=== PATIENT | female | born 1990 | race Caucasian/White ===

== ENCOUNTER 2016-10-17 18:50 | Emergency (ER) | payer BC ==
[2016-10-17 18:50] VITALS: BMI 33.9
[2016-10-17 19:15] VITALS: O2SAT 100
--- NOTE | 2016-10-17 19:53 | C.PDOC ---
History Of Present Illness Patient presents to the ER with a complaint of dizziness and nausea for the past 2 weeks. Patient states she feels nauseous after she eats and notes she is currently not dizzy. LMP was on 09/27. Denies fever, chills or vomiting. Time Seen by Provider: 10/17/16 19:53 Chief Complaint (Nursing): Dizziness/Lightheaded History Per: Patient History/Exam Limitations: no limitations Onset/Duration Of Symptoms: Days (14) Current Symptoms Are (Timing): Still Present Activity At Onset Of Symptoms: Other (Not known) Possible Causative Factor(s): Other (Eating) Fall Associated With With Symptoms: No Severity: None Pain Scale Rating Of: 0 Recent travel outside of the [place]: No Past Medical History Reviewed: Historical Data, Nursing Documentation, Vital Signs Vital Signs: Last Vital Signs Temp 98.8 F 10/17/16 19:11 Pulse 98 H 10/17/16 19:11 Resp 16 10/17/16 19:11 BP 127/89 10/17/16 19:11 Pulse Ox 100 10/17/16 20:25 - Medical History PMH: Anxiety Surgical History: No Surg Hx - [facility] Procedures REMOVAL FB FROM HAND (04/22/13) Family History: States: No Known Family Hx - Social History Hx Tobacco Use: Yes (light smoker) Hx Alcohol Use: Yes Hx Substance Use: No - Immunization History Hx Tetanus Toxoid Vaccination: No Hx Influenza Vaccination: No Hx Pneumococcal Vaccination: No Review Of Systems Constitutional: Negative for: Fever, Chills Gastrointestinal: Positive for: Nausea. Negative for: Vomiting Neurological: Positive for: Dizziness Physical Exam - Physical Exam Appears: Non-toxic, Other (Morbidly obese) Skin: Warm, Dry Oral Mucosa: Moist Chest: Symmetrical, No Tenderness Cardiovascular: Rhythm Regular, No Murmur Respiratory: No Rales, No Rhonchi, No Wheezing Gastrointestinal/Abdominal: Soft, No Tenderness, Other (Obese) Neurological/Psych: Oriented x3 ED Course And Treatment - Laboratory Results Result Diagrams: 10/17/16 21:03 10/17/16 21:03 O2 Sat by Pulse Oximetry: 100 (Room air) Progress Note: Urinalysis ordered. Disposition Counseled Patient/Family Regarding: Studies Performed, Diagnosis, Need For Followup, Rx Given - Disposition Referrals: [facility] [Outside] Disposition: HOME/ ROUTINE Disposition Time: 19:53 Condition: FAIR Prescriptions: Metronidazole [Flagyl] 500 mg PO TID #21 tablet Pantoprazole Sodium [Protonix] 20 mg PO DAILY #15 ect Instructions: Ovarian Cyst (ED), Enteritis (ED) - Clinical Impression Clinical Impression: Enteritis, Ruptured ovarian cyst - Scribe Statement The provider has reviewed the documentation as recorded by the Ninaibdarryl Dang All medical record entries made by the Ninaibdarryl were at my direction and personally dictated by me. I have reviewed the chart and agree that the record accurately reflects my personal performance of the history, physical exam, medical decision making, and the department course for this patient. I have also personally directed, reviewed, and agree with the discharge instructions and disposition.
[2016-10-17 20:35] LABS: URINE BACTERIA RARE (<OCC); URINE BILIRUBIN NEGATIVE (NEGATIVE); URINE BLOOD NEGATIVE (NEGATIVE); URINE COLOR Yellow (YELLOW); URINE GLUCOSE (UA) NORMAL (Normal); URINE KETONE NEGATIVE (NEGATIVE); URINE LEUKOCYTE ESTERASE NEG Leu/uL (Negative); URINE PROTEIN NEGATIVE (NEGATIVE); URINE UROBILINOGEN NORMAL mg/dL (0.2-1.0); WBC URINE < 1 /hpf (0-5)
[2016-10-17] MEDS ORDERED: Sodium Chloride 0.9% 1,000 ML IV ONE (20:42)
[2016-10-17 21:10] LABS: BASO # 0.1 K/uL (0.0-0.2); BASO % 0.3 % (0.0-2.0); EOS # 0.1 K/uL (0.0-0.7); EOS % 0.8 % (0.0-4.0); LYMPH # 3.7 K/uL (1.0-4.3); LYMPH % 23.7 % (20.0-40.0); MEAN CELL VOLUME 82.9 fL (81.0-99.0); MEAN CORPUSCULAR HEMOGLOBIN 26.7 pg (27.0-31.0); MEAN CORPUSCULAR HGB CONC 32.2 g/dL (33.0-37.0); MEAN PLATELET VOLUME 8.6 fL (7.2-11.7); MONO # 0.9 K/uL (0.0-0.8); NRBC % 0.1 % (0.0-2.0); RED CELL DISTRIBUTION WIDTH 14.2 % (11.5-14.5); WHITE BLOOD COUNT 15.8 K/uL (4.8-10.8)
[2016-10-17] MEDS ORDERED: Sodium Chloride 0.9% 1,000 ML ONE (21:11)
[2016-10-17 21:15] LABS: CHLORIDE 98 mmol/L (98-107); SODIUM 135 mmol/L (132-148)
[2016-10-17 21:16] LABS: POTASSIUM 4.3 mmol/L (3.6-5.2)
[2016-10-17 21:18] LABS: ALB/GLOB RATIO 1.1 (1.0-2.1); ALKALINE PHOSPHATASE 101 U/L (38-126); ALT/SGPT 24 U/L (9-52); AST/SGOT 17 U/L (14-36); BILIRUBIN,TOTAL 0.4 mg/dL (0.2-1.3); BLOOD UREA NITROGEN 16 mg/dL (7-17); CARBON DIOXIDE 27 mmol/L (22-30); GFR AFRICAN-AMERICAN > 60; GLUCOSE,RANDOM 89 mg/dL (65-105); TOTAL PROTEIN 7.5 g/dL (6.3-8.3)
[2016-10-17 21:19] LABS: CALCIUM 9.2 mg/dl (8.6-10.4)
[2016-10-17] MEDS ORDERED: Iohexol 350mg/ml 100 ML ONE (22:01)
[2016-10-17 22:54] VITALS: BP 114/73; PULSE 79; RESP 19; TEMP 98.1
--- NOTE | 2016-10-18 09:58 | CT ---
PROCEDURE: CT Abdomen and Pelvis with contrast HISTORY: mid epigastric, ruq pain COMPARISON: None. TECHNIQUE: Contrast dose: 100 mL Omnipaque 350 Radiation dose: Total exam DLP = 1140.55 mGy-cm. This CT exam was performed using one or more of the following dose reduction techniques: Automated exposure control, adjustment of the mA and/or kV according to patient size, and/or use of iterative reconstruction technique. FINDINGS: LOWER THORAX: Unremarkable. LIVER: Unremarkable. No gross lesion or ductal dilatation. GALLBLADDER AND BILE DUCTS: Unremarkable. PANCREAS: Unremarkable. No gross lesion or ductal dilatation. SPLEEN: Unremarkable. ADRENALS: Unremarkable. No mass. KIDNEYS AND URETERS: Unremarkable. No hydronephrosis. No solid mass. VASCULATURE: Unremarkable. No aortic aneurysm. BOWEL: No bowel obstruction. Circumferential mural thickening of several loops of proximal jejunum consistent with nonspecific enteritis. The stomach is underdistended. There are no other abnormal bowel loops identified. . APPENDIX: Normal appendix. PERITONEUM: Unremarkable. No free fluid. No free air. LYMPH NODES: No retroperitoneal or pelvic lymphadenopathy. Shotty subcentimeter mesenteric lymph nodes are noted, nonspecific. BLADDER: Unremarkable. REPRODUCTIVE: Normal uterus BONES: No acute fracture. OTHER FINDINGS: None. IMPRESSION: Nonspecific enteritis with mural thickening of loops of proximal jejunum. No bowel obstruction. Shotty subcentimeter mesenteric lymph nodes, nonspecific. No other significant abnormality. Preliminary interpretation of this examination was reported by [facility] at 10:45 p.m. on 10/17/2016. There is concurrence of this report with the preliminary interpretation.
== END 2016-10-17 23:03 | disposition home or self-care (01) ==
LOC: C.ER 18:50
DX: K52.9 Noninfective gastroenteritis and colitis, unspecified (principal); N83.209 Unspecified ovarian cyst, unspecified side
CPT/HCPCS: 74177; 80053; 81001; 83690; 84703; 85025; 96361; 96374; 99285; C9113; J7040; Q9967

== ENCOUNTER 2017-09-29 19:17 | Emergency (ER) | payer BC ==
[2017-09-29 19:18] VITALS: BMI 33.9
[2017-09-29 20:07] LABS: HCG,QUALITATIVE URINE NEGATIVE (NEGATIVE)
[2017-09-29 20:09] LABS: SQUAMOUS EPITHIAL 20 /hpf (0-5); URINE AMORPHOUS SEDIMENT RARE /ul (<OCC); URINE BACTERIA RARE (<OCC); URINE BILIRUBIN NEGATIVE (NEGATIVE); URINE BLOOD NEGATIVE (NEGATIVE); URINE CLARITY Hazy (Clear); URINE COLOR Yellow (YELLOW); URINE GLUCOSE (UA) NORMAL (Normal); URINE LEUKOCYTE ESTERASE NEG Leu/uL (Negative); URINE PROTEIN NEGATIVE (NEGATIVE); URINE UROBILINOGEN NORMAL mg/dL (0.2-1.0)
--- NOTE | 2017-09-29 21:35 | C.PDOC ---
History Of Present Illness 26 year old female with a past medical history of anxiety presents to the emergency department with complaints of intermittent vertigo associated with a pounding headache. Patient reports no past surgical history, no allergies, no current medication, occasional tobacco and alcohol use. Time Seen by Provider: 09/29/17 19:55 Chief Complaint (Nursing): Dizziness/Lightheaded History Per: Patient History/Exam Limitations: no limitations Onset/Duration Of Symptoms: Hrs Activity At Onset Of Symptoms: Standing Possible Causative Factor(s): Vertigo Past Medical History Reviewed: Historical Data, Nursing Documentation, Vital Signs Vital Signs: Last Vital Signs Temp 98.7 F 09/29/17 21:46 Pulse 71 09/29/17 21:46 Resp 16 09/29/17 21:46 BP 115/77 09/29/17 21:46 Pulse Ox 97 09/30/17 18:54 - Medical History PMH: Anxiety Denies: Alzheimer's Disease, Dementia, Migraine, Multiple Sclerosis, Parkinson's Disease, Seizures, TIA Surgical History: No Surg Hx - [facility] Procedures REMOVAL FB FROM HAND (04/22/13) Family History: States: No Known Family Hx - Social History Hx Tobacco Use: Yes (light smoker) Hx Alcohol Use: Yes Hx Substance Use: No - Immunization History Hx Tetanus Toxoid Vaccination: No Hx Influenza Vaccination: No Hx Pneumococcal Vaccination: No Review Of Systems Except As Marked, All Systems Reviewed And Found Negative. Constitutional: Negative for: Fever, Chills, Sweats Eyes: Negative for: Pain, Vision Change ENT: Negative for: Ear Pain, Ear Discharge, Nose Pain Cardiovascular: Positive for: Other (vertigo). Negative for: Chest Pain, Palpitations, Orthopnea, Paroxysmal Noc. Dyspnea Respiratory: Negative for: Shortness of Breath, SOB with Excertion, Pleuritic Pain, Sputum, Wheezing Gastrointestinal: Positive for: Nausea, Vomiting. Negative for: Abdominal Pain , Constipation, Melena, Hematochezia Musculoskeletal: Negative for: Neck Pain Skin: Negative for: Rash Neurological: Positive for: Headache. Negative for: Weakness, Numbness Psych: Negative for: Anxiety, Depression Physical Exam - Physical Exam Appears: Non-toxic, No Acute Distress Skin: Normal Color, Warm, Dry Head: Atraumatic, Normacephalic Eye(s): bilateral: Normal Inspection, PERRL, EOMI, left: Other (horizontal nystagmus) Ear(s): Bilateral: Normal Nose: Normal Tongue: Normal Appearing Lips: Normal Appearing Teeth: Normal Dentition Gingiva: Normal Appearing Neck: Normal, Supple Chest: Symmetrical Cardiovascular: Rhythm Regular, No Murmur Respiratory: Normal Breath Sounds, No Rales, No Rhonchi, No Wheezing Gastrointestinal/Abdominal: Normal Exam, Soft, No Tenderness, No Distention Back: Normal Inspection Extremity: Normal ROM Extremity: Bilateral: Atraumatic, Normal Color And Temperature, Normal ROM Gait: Steady ED Course And Treatment O2 Sat by Pulse Oximetry: 97 (RA) Pulse Ox Interpretation: Normal Medical Decision Making Medical Decision Making: Plan: Beta-HCG Antivert 50mg PO Urinalysis py symptoms improve here prior to dc home. Disposition Counseled Patient/Family Regarding: Diagnosis, Need For Followup, Rx Given - Disposition Referrals: Dwight Newton MD [Medical Doctor] - Disposition: HOME/ ROUTINE Disposition Time: 21:35 Condition: GOOD Prescriptions: Meclizine [Meclizine*] 25 mg PO Q6 PRN 3 Days #9 tab PRN Reason: Dizziness Instructions: Vertigo (a Type of Dizziness), Vertigo (a Type of Dizziness) (DC) Forms: [employer] ([employer]) - Clinical Impression Clinical Impression: Dizziness, Headache, Vertigo - Scribe Statement The provider has reviewed the documentation as recorded by the Scribe (Johan Downs) Provider Attestation: All medical record entries made by the Scribe were at my direction and personally dictated by me. I have reviewed the chart and agree that the record accurately reflects my personal performance of the history, physical exam, medical decision making, and the department course for this patient. I have also personally directed, reviewed, and agree with the discharge instructions and disposition.
[2017-09-29 21:46] VITALS: BP 115/77; PULSE 71; RESP 16; TEMP 98.7
[2017-09-29 22:06] VITALS: O2SAT 97
== END 2017-09-29 21:57 | disposition home or self-care (01) ==
LOC: C.ER 19:17
DX: R42 Dizziness and giddiness (principal); R51 Headache